=== PATIENT | female | born 1960 | race Two or more races ===

== ENCOUNTER → 2017-04-02 | Outpatient (CLI) | payer SELFPAY ==
[2017-04-02 13:10] LABS: APPEARANCE,URINE CLEAR; BILIRUBIN,URINE NEGATIVE (NEGATIVE); COLOR,URINE STRAW; GLUCOSE, URINE NEGATIVE (NEGATIVE); KETONES,URINE NEGATIVE (NEGATIVE); LEUKOCYTE ESTERASE,URINE TRACE (NEGATIVE); NITRITE,URINE NEGATIVE (NEGATIVE); PROTEIN,URINE NEGATIVE (NEGATIVE); UROBILINOGEN,URINE NEGATIVE mg/dL (<2.0)
[2017-04-02 13:29] LABS: ANION GAP 12 (5-19); BLOOD UREA NITROGEN 27 mg/dL (7-20); CARBON DIOXIDE 26 mmol/L (22-30); CHLORIDE 103 mmol/L (98-107); GLUCOSE 146 mg/dL (75-110); POTASSIUM 4.7 mmol/L (3.6-5.0)
[2017-04-03 12:39] LABS: CREATININE URINE 46.2 mg/dL (Not Estab.); MICROALBUMIN URINE <3.0 ug/mL (Not Estab.)
== END ==
LOC: OD 11:30
PROVIDERS: ATTEND Internal Medicine Nephrology
DX: Q61.2 Polycystic kidney, adult type (principal); N18.2 Chronic kidney disease, stage 2 (mild)
CPT/HCPCS: 36415; 80048; 81001; 82043; 82570

== ENCOUNTER 2017-06-26 15:25 | Emergency (ER) | payer SELFPAY ==
--- NOTE | 2017-06-26 18:48 | ER Document Report ---
ED Medical Screen (RME) - General Chief Complaint: Cough Stated Complaint: COUGH/FEVER Time Seen by Provider: 06/26/17 18:27 Mode of Arrival: Ambulatory Information source: Patient Notes: Patient is a 57 year old [place] female who speaks Khrem who is being translated by her daughter at bedside that presents today with complaints of generalized fatigue and not feeling well. Patient states that she was recently in [place] and she was put on an unknown antibiotic for a urine infection. Patient states that she finished her abx several days ago. Patient was seen at her PCP office and had questionable pneumonia on CXR. I have greeted and performed a rapid initial assessment of this patient. A comprehensive ED assessment and evaluation of the patient, analysis of test results, and completion of the medical decision making process will be conducted by additional ED providers. Review of systems: Constitutional: No symptoms reported EENT: No symptoms reported Cardiovascular: No symptoms reported Respiratory: No symptoms reported Gastrointestinal: No symptoms reported Genitourinary: No symptoms reported Musculoskeletal: No symptoms reported Skin: No symptoms reported Hematologic/Lymphatic: No symptoms reported Neurological/Psychological: No symptoms reported Yes All other systems reviewed and negative Physical Exam: General: Alert, appears well. HEENT: Normocephalic. Atraumatic. PERRLA. Extraocular movements intact. Oropharynx clear. Neck: Supple. Respiratory: No respiratory distress. Abdominal: Normal Inspection. No distension. Extremities: Moves all four extremities. Neurological: Normal cognition. AAOx4. Normal speech. Psychological: Normal affect. Normal Mood. Skin: Warm. Dry. Normal color. TRAVEL OUTSIDE OF THE [place] IN LAST 30 DAYS: No - Related Data Allergies/Adverse Reactions: No Known Allergies Allergy (Unverified 09/19/15 05:41) Past Medical History - Social History Chew tobacco use (# tins/day): No Frequency of alcohol use: None Drug Abuse: None Family history: Reviewed & Not Pertinent Renal/ Medical History: Denies: Hx Peritoneal Dialysis Psychiatric Medical History: Denies: Hx Depression Physical Exam - Vital signs Vitals: Temp Pulse BP Pulse Ox 98.6 F 75 122/67 97 06/26/17 15:53 06/26/17 15:53 06/26/17 15:53 06/26/17 15:53 Course - Vital Signs Vital signs: Temp Pulse Resp BP Pulse Ox 98.6 F 75 16 139/74 H 100 06/26/17 15:53 06/26/17 15:53 06/27/17 00:01 06/27/17 00:01 06/27/17 00:01 - Laboratory Result Diagrams: 06/26/17 19:20 06/26/17 19:20 Laboratory results interpreted by me: 06/26/17 06/26/17 06/26/17 19:20 19:20 22:55 WBC 17.9 H Hgb 10.0 L Hct 30.2 L MCH 26.4 L RDW 14.1 H Plt Count 624 H Seg Neutrophils % 81.3 H Lymphocytes % 9.9 L Absolute Neutrophils 14.5 H Sodium 132.9 L Chloride 93 L Glucose 173 H Direct Bilirubin 0.6 H AST 72 H ALT 126 H Alkaline Phosphatase 252 H Urine Blood SMALL H Ur Leukocyte Esterase TRACE H Doctor's Discharge - Discharge Clinical Impression: Pneumonia Condition: Stable Disposition: HOME, SELF-CARE Instructions: Levofloxacin, Pneumonia ([facility]) Additional Instructions: Maintain adequate fluid intake Take meds as directed tylenol/ibuprofen as needed over the counter cold medication as needed for symptoms Humidified air may help Wash your hands regularly Wear a mask when coughing F/u: with your PCM in 2-3 days for a recheck Return to the ED with any fever, worsening pain, chest pain, palpitations, syncope, worsening CALDERON, neck pain/stiffness, shortness of breath, wheezing, drooling, trouble swallowing/breathing, abdominal pain, n/v/d, rash, or worsening/concerning symptoms otherwise. Prescriptions: Levofloxacin [Levaquin 750 mg Tablet] 750 mg PO DAILY #5 tablet Forms: Elevated Blood Pressure Referrals: SHEREE RABAGO MD [Primary Care Provider] - 06/28/17
[2017-06-26] MEDS ORDERED: NORMAL SALINE 1000 ML 500 ML IV ONE (18:50)
[2017-06-26 19:47] LABS: ABSOLUTE BASOPHILS # (AUTO) 0.1 10^3/uL (0.0-0.2); ABSOLUTE LYMPHOCYTES (AUTO) 1.8 10^3/uL (0.5-4.7); ABSOLUTE MONOCYTES (AUTO) 1.4 10^3/uL (0.1-1.4); ABSOLUTE NEUT (AUTO) 14.5 10^3/uL (1.7-8.2); BASOPHILS % (AUTO) 0.8 % (0-2); EOSINOPHILS % (AUTO) 0.2 % (0-6); HEMATOCRIT 30.2 % (36.0-47.0); LYMPHOCYTES % (AUTO) 9.9 % (13-45); MEAN CORPUSCULAR HEMOGLOBIN 26.4 pg (27.0-33.4); MEAN CORPUSCULAR HGB CONC 33.1 g/dL (32.0-36.0); MEAN CORPUSCULAR VOLUME 80 fl (80-97); MONOCYTES % (AUTO) 7.8 % (3-13); PLATELET COUNT 624 10^3/uL (150-450); RED BLOOD COUNT 3.79 10^6/uL (3.72-5.28); RED CELL DISTRIBUTION WIDTH 14.1 % (11.5-14.0); SEGMENTED NEUTROPHILS % (AUTO) 81.3 % (42-78); TOTAL CELLS COUNTED % (AUTO) 100 %; WHITE BLOOD COUNT 17.9 10^3/uL (4.0-10.5)
[2017-06-26 20:04] LABS: ALANINE AMINOTRANSFERASE 126 U/L (9-52); ALKALINE PHOSPHATASE 252 U/L (38-126); ANION GAP 10 (5-19); ASPARTATE AMINO TRANSFERASE 72 U/L (14-36); BILIRUBIN,DIRECT 0.6 mg/dL (0.0-0.4); BILIRUBIN,TOTAL 0.9 mg/dL (0.2-1.3); BLOOD UREA NITROGEN 10 mg/dL (7-20); CALCIUM 9.6 mg/dL (8.4-10.2); CARBON DIOXIDE 30 mmol/L (22-30); CHLORIDE 93 mmol/L (98-107); GLUCOSE 173 mg/dL (75-110); SODIUM 132.9 mmol/L (137-145); TOTAL PROTEIN 8.2 g/dL (6.3-8.2)
--- NOTE | 2017-06-26 20:10 | RADIOLOGY REPORT (SQ) ---
EXAM DESCRIPTION: CHEST 2 VIEWS COMPLETED DATE/TIME: 06/26/2017 7:44 pm REASON FOR STUDY: cough/congestion COMPARISON: None. EXAM PARAMETERS: NUMBER OF VIEWS: two views TECHNIQUE: Digital Frontal and Lateral radiographic views of the chest acquired. RADIATION DOSE: NA LIMITATIONS: none FINDINGS: LUNGS AND PLEURA: A few linear densities in the right middle lobe and right lower lobe. L eft lung clear. No pleural effusion. No pneumothorax. MEDIASTINUM AND HILAR STRUCTURES: No masses or contour abnormalities. HEART AND VASCULAR STRUCTURES: Heart normal size. No evidence for failure. BONES: No acute findings. HARDWARE: None in the chest. OTHER: No other significant finding. IMPRESSION: ATELECTASIS VERSUS SCARRING IN THE RIGHT LUNG BASE. TECHNICAL DOCUMENTATION: JOB ID: [id number] [employer]- All Rights Reserved Reading location - IP/workstation name: [email or web address]
[2017-06-26] MEDS ORDERED: BENZONATATE 100 MG CAPSULE PO ONE (21:07)
--- NOTE | 2017-06-26 21:10 | ER Document Report ---
ED General - General Chief Complaint: Cough Stated Complaint: COUGH/FEVER Time Seen by Provider: 06/26/17 18:27 Mode of Arrival: Ambulatory TRAVEL OUTSIDE OF THE [place] IN LAST 30 DAYS: No - HPI Notes: Patient is a 57-year-old female with a history of acid reflux and type 2 diabetes who presents to the ED with daughter, who is interpreting, complaining of generalized fatigue, weakness, dry nonproductive cough. Patient states that she was being treated for a urinary infection 2 weeks ago and finished the antibiotic 4 days ago. Patient began feeling fatigued and having a cough prior to her flight from [place] to [facility] earlier this week. Daughter also notes a subjective fever in the evenings. Patient has a decreased appetite as well and had 2 episodes of vomiting yesterday. - Related Data Allergies/Adverse Reactions: No Known Allergies Allergy (Unverified 09/19/15 05:41) Past Medical History - General Information source: Patient - Social History Smoking Status: Former Smoker Chew tobacco use (# tins/day): No Frequency of alcohol use: None Drug Abuse: None Family History: Reviewed & Not Pertinent Patient has suicidal ideation: No Patient has homicidal ideation: No Renal/ Medical History: Denies: Hx Peritoneal Dialysis Psychiatric Medical History: Denies: Hx Depression Review of Systems - Review of Systems -: Yes All other systems reviewed and negative Physical Exam - Vital signs Vitals: Temp Pulse BP Pulse Ox 98.6 F 75 122/67 97 06/26/17 15:53 06/26/17 15:53 06/26/17 15:53 06/26/17 15:53 - Notes Notes: PHYSICAL EXAMINATION: GENERAL: Well-appearing, well-nourished and in no acute distress. A&Ox4. Answers questions appropriately. HEAD: Atraumatic, normocephalic. EYES: Pupils equal round and reactive to light, extraocular movements intact, sclera anicteric, conjunctiva are normal. ENT: Nares patent and without discharge. oropharynx clear without exudates. No tonsilar hypertrophy or erythema. Moist mucous membranes. No sinus tenderness. NECK: Normal range of motion, supple without lymphadenopathy LUNGS: Breath sounds clear to auscultation bilaterally and equal. No wheezes rales or rhonchi. HEART: Regular rate and rhythm without murmurs, rubs, gallops. ABDOMEN: Soft, nontender, nondistended abdomen. No guarding, no rebound. No masses appreciated. Normal bowel sounds present. No CVA tenderness bilaterally. Musculoskeletal: FROM to passive/active. Strength 5+/5. Extremities: No cyanosis, clubbing, or edema b/l. Peripheral pulses 2+. Capillary refill less than 3 seconds. NEUROLOGICAL: Cranial nerves grossly intact. Normal speech, normal gait. Normal sensory, motor exams PSYCH: Normal mood, normal affect. SKIN: Warm, Dry, normal turgor, no rashes or lesions noted. Course - Re-evaluation Re-evalutation: 06/26/17 23:53 Patient is an afebrile, well-hydrated, 57-year-old female who presents to the ED with suspected pneumonia of the right middle lobe and lingula. Vitals are acceptable. PE is otherwise unremarkable. Patient did have an x-ray performed by her primary care provider today, Dr. Santoro, which read "questionable mild congestive heart failure with infiltrate in the right middle lobe and lingula consistent with superimposed pneumonia." Even though our x-ray read unremarkable, patient has an elevated white blood cell count with a left shift as well as a cough which makes me concerned for pneumonia. Patient did have some mildly elevated LFTs. BNP and troponin 2/EKG, UA were unremarkable for any acute pathology. Patient has not had any worsening symptoms during her stay. Patient is tolerating p.o. without any difficulties. Daughter is comfortable taking care of mother at home. I did review this case with Dr. Win who is in agreement with dispo and plan. I will send her home with a prescription for Levaquin to take as directed. Conservative measures otherwise for symptoms. Recheck with your PCM in 2-3 days. Return to the ED with any worsening/concerning symptoms otherwise as reviewed discharge. Patient/ daughter in agreement. - Vital Signs Vital signs: Temp Pulse Resp BP Pulse Ox 98.6 F 75 19 143/81 H 99 06/26/17 15:53 06/26/17 15:53 06/26/17 23:03 06/26/17 23:03 06/26/17 23:03 - Laboratory Result Diagrams: 06/26/17 19:20 06/26/17 19:20 Laboratory results interpreted by me: 06/26/17 06/26/17 06/26/17 19:20 19:20 22:55 WBC 17.9 H Hgb 10.0 L Hct 30.2 L MCH 26.4 L RDW 14.1 H Plt Count 624 H Seg Neutrophils % 81.3 H Lymphocytes % 9.9 L Absolute Neutrophils 14.5 H Sodium 132.9 L Chloride 93 L Glucose 173 H Direct Bilirubin 0.6 H AST 72 H ALT 126 H Alkaline Phosphatase 252 H Urine Blood SMALL H Ur Leukocyte Esterase TRACE H Discharge - Discharge Clinical Impression: Pneumonia Qualifiers: Pneumonia type: due to unspecified organism Laterality: right Lung location: middle lobe of lung Qualified Code(s): J18.1 - Lobar pneumonia, unspecified organism Condition: Stable Disposition: HOME, SELF-CARE Instructions: Pneumonia ([facility]), Levofloxacin Additional Instructions: Maintain adequate fluid intake Take meds as directed tylenol/ibuprofen as needed over the counter cold medication as needed for symptoms Humidified air may help Wash your hands regularly Wear a mask when coughing F/u: with your PCM in 2-3 days for a recheck Return to the ED with any fever, worsening pain, chest pain, palpitations, syncope, worsening CALDERON, neck pain/stiffness, shortness of breath, wheezing, drooling, trouble swallowing/breathing, abdominal pain, n/v/d, rash, or worsening/concerning symptoms otherwise. Prescriptions: Levofloxacin [Levaquin 750 mg Tablet] 750 mg PO DAILY #5 tablet Forms: Elevated Blood Pressure Referrals: SHEREE SANTORO MD [Primary Care Provider] - 06/28/17
[2017-06-26 21:40] LABS: LIPASE 64.8 U/L (23-300)
[2017-06-26] MEDS ORDERED: NORMAL SALINE 1000 ML 1,000 ML IV ONE (22:32)
[2017-06-26] MEDS ORDERED: NORMAL SALINE 1000 ML 1,000 ML IV PRN (22:32)
--- NOTE | 2017-06-26 23:11 | EKG REPORT ---
SEVERITY:- BORDERLINE ECG - SINUS RHYTHM VENTRICULAR PREMATURE COMPLEX PROBABLE LEFT ATRIAL ABNORMALITY : Confirmed by: Opal Lerma 26-Jun-2017 23:11:16
[2017-06-26 23:24] LABS: APPEARANCE,URINE CLEAR; BILIRUBIN,URINE NEGATIVE (NEGATIVE); COLOR,URINE STRAW; GLUCOSE, URINE NEGATIVE (NEGATIVE); KETONES,URINE NEGATIVE (NEGATIVE); LEUKOCYTE ESTERASE,URINE TRACE (NEGATIVE); NITRITE,URINE NEGATIVE (NEGATIVE); PROTEIN,URINE NEGATIVE (NEGATIVE); URINE SPECIFIC GRAVITY 1.001; UROBILINOGEN,URINE NEGATIVE mg/dL (<2.0)
[2017-06-26 23:37] LABS: NT PRO BNP 695 pg/mL (5-900)
[2017-06-26 23:41] LABS: TROPONIN I < 0.012 ng/mL
[2017-06-26] MEDS ORDERED: LEVOFLOXACIN 750 MG TABLET PO ONE (23:58)
[2017-06-27 00:03] VITALS: BP 139/74
== END 2017-06-27 00:25 | disposition home or self-care (01) ==
LOC: ER 15:25
DX: J18.1 Lobar pneumonia, unspecified organism (principal); R50.9 Fever, unspecified; R53.83 Other fatigue; E11.9 Type 2 diabetes mellitus without complications
CPT/HCPCS: 93005; 99284; 96360; 36415; 87040; 83690; 83735; 85025; 80053; 81001; 84484; 83605; 83880; 71046; 93010; J7030

== ENCOUNTER 2017-06-29 22:54 | Emergency (ER) | payer SELFPAY ==
[2017-06-30] MEDS ORDERED: NORMAL SALINE 1000 ML 1,000 ML IV ONE ×2 (00:42→00:54)
[2017-06-30 01:32] LABS: ABSOLUTE LYMPHOCYTES (AUTO) 1.3 10^3/uL (0.5-4.7); ABSOLUTE MONOCYTES (AUTO) 0.8 10^3/uL (0.1-1.4); ABSOLUTE NEUT (AUTO) 9.2 10^3/uL (1.7-8.2); BASOPHILS % (AUTO) 0.4 % (0-2); EOSINOPHILS % (AUTO) 0.1 % (0-6); HEMOGLOBIN 9.6 g/dL (12.0-15.5); LYMPHOCYTES % (AUTO) 11.1 % (13-45); MEAN CORPUSCULAR HEMOGLOBIN 26.4 pg (27.0-33.4); MEAN CORPUSCULAR HGB CONC 33.2 g/dL (32.0-36.0); MEAN CORPUSCULAR VOLUME 80 fl (80-97); MONOCYTES % (AUTO) 7.4 % (3-13); PLATELET COUNT 510 10^3/uL (150-450); RED BLOOD COUNT 3.64 10^6/uL (3.72-5.28); TOTAL CELLS COUNTED % (AUTO) 100 %; WHITE BLOOD COUNT 11.4 10^3/uL (4.0-10.5)
--- NOTE | 2017-06-30 01:39 | ER Document Report ---
ED General - General Chief Complaint: Fever Stated Complaint: VOMITING Time Seen by Provider: 06/30/17 00:41 Mode of Arrival: Ambulatory Information source: Patient Notes: 57-year-old female presents with complaints of fever generalized weakness. Patient notes that she had a UTI approximately 3 weeks ago was placed on antibiotics, was seen by primary care physician noted she had pneumonia and was sent into the ED for evaluation, was started on Levaquin a few days prior and today is her second to last dose and she is still having fevers generalized weakness cough TRAVEL OUTSIDE OF THE [place] IN LAST 30 DAYS: No - HPI Onset: Other Onset/Duration: Persistent Quality of pain: No pain Severity: Mild Pain Level: 1 Associated symptoms: Productive cough, Fever, Shortness of breath, Weakness Exacerbated by: Denies Relieved by: Denies Similar symptoms previously: No Recently seen / treated by doctor: No - Related Data Allergies/Adverse Reactions: No Known Allergies Allergy (Verified 06/29/17 22:58) Past Medical History - Social History Smoking Status: Never Smoker Cigarette use (# per day): No Chew tobacco use (# tins/day): No Smoking Education Provided: No Family History: Reviewed & Not Pertinent Renal/ Medical History: Denies: Hx Peritoneal Dialysis Psychiatric Medical History: Denies: Hx Depression Review of Systems - Review of Systems Notes: REVIEW OF SYSTEMS: CONSTITUTIONAL : admits to fever EENT: Denies eye, ear, throat, or mouth pain or symptoms. Denies nasal or sinus congestion or discharge. Denies throat, tongue, or mouth swelling or difficulty swallowing. CARDIOVASCULAR: Denies chest pain. Denies palpitations or racing or irregular heart beat. Denies ankle edema. RESPIRATORY: admits to cough GASTROINTESTINAL: Denies abdominal pain or distention. Denies nausea, vomiting , or diarrhea. Denies blood in vomitus, stools, or per rectum. Denies black, tarry stools. Denies constipation. GENITOURINARY: Denies difficulty urinating, painful urination, burning, frequency, blood in urine, or discharge. FEMALE GENITOURINARY: Denies vaginal bleeding, heavy or abnormal periods, irregular periods. Denies vaginal discharge or odor. MUSCULOSKELETAL: Denies back or neck pain or stiffness. Denies joint pain or swelling. SKIN: Denies rash, lesions or sores. HEMATOLOGIC : Denies easy bruising or bleeding. LYMPHATIC: Denies swollen, enlarged glands. NEUROLOGICAL: admits to weakness PSYCHIATRIC: Denies anxiety or stress. Denies depression, suicidal ideation, or homicidal ideation. ALL OTHER SYSTEMS REVIEWED AND NEGATIVE. PHYSICAL EXAMINATION: GENERAL: ill-appearing, mild distress HEAD: Atraumatic, normocephalic. EYES: Pupils equal round and reactive to light, extraocular movements intact, conjunctiva are normal. ENT: Nares patent, oropharynx clear without exudates. Moist mucous membranes. NECK: Normal range of motion, supple without lymphadenopathy LUNGS: Breath sounds clear to auscultation bilaterally and equal. No wheezes rales or rhonchi. HEART: Regular rate and rhythm without murmurs ABDOMEN: Soft, nontender, nondistended abdomen. No guarding, no rebound. No masses appreciated. Female : deferred Musculoskeletal: Normal range of motion, no pitting or edema. No cyanosis. NEUROLOGICAL: Cranial nerves grossly intact. Normal speech, normal gait. Normal sensory, motor exams PSYCH: Normal mood, normal affect. SKIN: Warm, Dry, normal turgor, no rashes or lesions noted. Dictation was performed using [employer] voice recognition software Physical Exam - Vital signs Vitals: Temp Pulse Resp BP Pulse Ox 98 F 89 18 121/64 98 06/30/17 00:11 06/30/17 00:11 06/30/17 00:11 06/30/17 00:11 06/30/17 00:11 Course - Re-evaluation Re-evalutation: 06/30/17 01:38 Patient has had multiple recent visits for antibiotics and illnesses, CT chest pending given recent travel 06/30/17 03:36 Patient's blood work notes improvement of the white count, CTA was performed which noted no acute abnormality, patient overall looks well is in no distress mild liver enzyme elevations are noted and this has been explained to the family. Daughter is doing translation, they refused to have an seismic interpreter which is obviously a poor decision however they are insistent on the daughter talking 06/30/17 03:54 Overall patient's presentation is improved, she feels better after IV fluids and Antivert were given. I do not believe she requires any further antibiotics. After performing a Medical Screening Examination, I estimate there is LOW risk for INTRACRANIAL HEMORRHAGE, ISCHEMIC CVA, MALIGNANT DYSRHYTHMIA, ACUTE CORONARY SYNDROME, MENINGITIS, PULMONARY EMBOLISM, or SEPSIS thus I consider the discharge disposition reasonable. I have reevaluated this patient multiple times and no significant life threatening changes are noted. The patient and I have discussed the diagnosis and risks, and we agree with discharging home with close follow-up with the understanding that symptoms and presentations can change. We also discussed returning to the Emergency Department immediately if new or worsening symptoms occur. We have discussed the symptoms which are most concerning (e.g., changing or worsening pain, weakness, vomiting, fever) that necessitate immediate return. - Vital Signs Vital signs: Temp Pulse Resp BP Pulse Ox 98 F 89 18 121/64 98 06/30/17 00:11 06/30/17 00:11 06/30/17 00:11 06/30/17 00:11 06/30/17 00:11 - Laboratory Result Diagrams: 06/30/17 01:15 06/30/17 01:15 Laboratory results interpreted by me: 06/30/17 06/30/17 06/30/17 01:15 01:15 01:15 WBC 11.4 H RBC 3.64 L Hgb 9.6 L Hct 29.0 L MCH 26.4 L Plt Count 510 H Seg Neutrophils % 81.0 H Lymphocytes % 11.1 L Absolute Neutrophils 9.2 H Chloride 96 L Glucose 176 H Direct Bilirubin 0.5 H AST 69 H ALT 112 H Alkaline Phosphatase 269 H Albumin 3.4 L Urine Blood SMALL H - Diagnostic Test Radiology reviewed: Image reviewed - CTA chest noted no significant abnormality report has been provided to them regarding possible pulmonary hypertension, Reports reviewed Discharge - Discharge Clinical Impression: Dehydration, Elevated liver enzymes Nausea & vomiting Qualifiers: Vomiting type: unspecified Vomiting Intractability: non-intractable Qualified Code(s): R11.2 - Nausea with vomiting, unspecified Condition: Stable Disposition: HOME, SELF-CARE Instructions: Vomiting ([facility]) Additional Instructions: Follow up with your physician tomorrow for further care or return to the ED IMMEDIATELY if symptoms worsen or new concerns occur. If you cannot afford to follow up with your primary care physician a list of low cost clinics have been provided at the end of your discharge papers as well. Prescriptions: Promethazine HCl [Phenergan 25 mg Tablet] 25 - 50 mg PO Q4HP PRN #12 tablet PRN Reason:
[2017-06-30 01:55] LABS: ALANINE AMINOTRANSFERASE 112 U/L (9-52); ALBUMIN 3.4 g/dL (3.5-5.0); ALKALINE PHOSPHATASE 269 U/L (38-126); ANION GAP 15 (5-19); ASPARTATE AMINO TRANSFERASE 69 U/L (14-36); BILIRUBIN,DIRECT 0.5 mg/dL (0.0-0.4); BILIRUBIN,TOTAL 0.7 mg/dL (0.2-1.3); BLOOD UREA NITROGEN 13 mg/dL (7-20); CALCIUM 8.9 mg/dL (8.4-10.2); CARBON DIOXIDE 27 mmol/L (22-30); CHLORIDE 96 mmol/L (98-107); GLUCOSE 176 mg/dL (75-110); LIPASE 76.3 U/L (23-300); POTASSIUM 4.2 mmol/L (3.6-5.0); SODIUM 138.1 mmol/L (137-145); TOTAL PROTEIN 7.1 g/dL (6.3-8.2)
--- NOTE | 2017-06-30 03:10 | RADIOLOGY REPORT (SQ) ---
EXAM DESCRIPTION: CTA of the chest per PE protocol with contrast. CLINICAL HISTORY: fever, pneumonia, recent flight COMPARISON: None Available. TECHNIQUE: CTA of the chest obtained following the uncomplicated intravenous administration of 63 mL Isovue-370. 3-D/MIP reformatted images of the chest available for evaluation. DLP: 560.25 mGycm FINDINGS: Chest: Pulmonary arteries: Contrast bolus is adequate.No filling defects identified in the pulmonary arteries to suggest pulmonary embolus. Enlargement of the main pulmonary artery could be seen with pulmonary arterial hypertension. Thyroid:No abnormalities of the visualized thyroid. Great Vessels:Great vessels have normal anatomic configuration. Thoracic Aorta: Atherosclerotic calcification of the thoracic aorta. Heart:No cardiomegaly, significant pericardial effusion, or coronary artery atherosclerosis Lymph Nodes:No enlarged mediastinal lymph nodes identified. Esophagus:No abnormalities of the esophagus identified. Other:No additional findings. Lungs: Minimal discoid atelectasis in the right middle lobe. No lobar consolidation. Pleura:No pleural effusion or pneumothorax. Trachea/Airways:No abnormalities of the visualized trachea or airways. Bones: No destructive osseous lesions. Upper Abdomen: Limited images of the upper abdomen demonstrate numerous cysts throughout the kidneys bilaterally. Scattered small hepatic cysts. No abnormalities of the gallbladder, pancreas, adrenal glands, or spleen. IMPRESSION: 1. No pulmonary embolus identified. 2. Findings compatible with polycystic kidney disease. 3. Enlargement main pulmonary artery could be seen with pulmonary arterial hypertension. This exam was performed according to our departmental dose-optimization program, which includes automated exposure control, adjustment of the mA and/or kV according to patient size and/or use of iterative reconstruction technique.
[2017-06-30] MEDS ORDERED: MECLIZINE HCL 25 MG TABLET PO ONE (03:36)
[2017-06-30 03:45] LABS: APPEARANCE,URINE CLEAR; BILIRUBIN,URINE NEGATIVE (NEGATIVE); COLOR,URINE YELLOW; GLUCOSE, URINE NEGATIVE (NEGATIVE); KETONES,URINE NEGATIVE (NEGATIVE); LEUKOCYTE ESTERASE,URINE NEGATIVE (NEGATIVE); NITRITE,URINE NEGATIVE (NEGATIVE); PROTEIN,URINE NEGATIVE (NEGATIVE); URINE SPECIFIC GRAVITY 1.006; UROBILINOGEN,URINE NEGATIVE mg/dL (<2.0)
[2017-06-30 05:06] VITALS: BP 134/62
== END 2017-06-30 05:06 | disposition home or self-care (01) ==
LOC: ER 22:54
DX: E86.0 Dehydration (principal); R11.2 Nausea with vomiting, unspecified; J18.9 Pneumonia, unspecified organism; R50.9 Fever, unspecified; R53.1 Weakness; R05 Cough; R06.02 Shortness of breath; R74.8 Abnormal levels of other serum enzymes; Z87.440 Personal history of urinary (tract) infections
CPT/HCPCS: 99284; 96360; 96361; 36415; 83690; 85025; 80053; 81001; 71275; J7030